=== PATIENT | male | born 1980 | race Caucasian/White ===

== ENCOUNTER → 2017-06-25 07:52 | Outpatient (CLI) | payer OTHER | END | disposition home or self-care (01) | LOC: D.US 07:52 | DX: C92.10 Chronic myeloid leukemia, BCR/ABL-positive, not having achieved remission (principal) ==

== ENCOUNTER 2019-09-07 09:35 | Emergency (ER) | payer MEDICARE ==
[~2019-09-07] VITALS: Ht 188 cm; Wt 115.9 kg
[2019-09-07 09:46] VITALS: Ht 188 cm; Wt 115.9 kg
[2019-09-07] MEDS ORDERED: COREG 3.1253.125 MG PO (09:48)
[2019-09-07] MEDS ORDERED: TASIGNA200 MG PO (09:48)
[2019-09-07] MEDS ORDERED: PREDNISONE20 MG PO (09:49)
[2019-09-07] MEDS ORDERED: OXYCONTIN10 MG PO (09:49)
[2019-09-07 10:13] LABS: ANION GAP 15.2 mmol/L (8-16); CALCIUM 9.1 mg/dL (8.5-10.1); CARBON DIOXIDE 25.8 mmol/L (21.0-32.0); CREATININE - SERUM 1.3 mg/dL (0.6-1.3)
[2019-09-07 10:19] LABS: ALBUMIN 3.6 g/dL (3.4-5.0); BILIRUBIN - TOTAL 0.7 mg/dL (0.2-1.3); PROTEIN - SERUM 7.3 g/dL (6.4-8.2)
[2019-09-07 10:25] LABS: HEMATOCRIT 29.8 % (42.0-54.0); HEMOGLOBIN 9.9 g/dL (13.5-17.5); MCHC 33.2 g/dL (31.0-37.0); MCV 81.2 fL (80.0-100.0); MEAN PLATELET VOLUME 8.4 fL (7.4-10.4); PLATELET COUNT 85 10x3/uL (130-400); RBC 3.67 10x6/uL (4.20-6.10); WBC 24.6 10x3/uL (4.8-10.8)
[2019-09-07] MEDS ORDERED: FUROSEMIDE20 MG PO (11:06)
[2019-09-07 11:20] VITALS: BP 142/84
[2019-09-07 11:50] LABS: BASOPHILS 46 % (0-2); EOSINOPHILS 1 % (0-7); LYMPHOCYTES 46 % (15-50); NEUTROPHILS 6 % (40-80); PLATELET ESTIMATE DECREASED
== END 2019-09-07 11:20 | disposition home or self-care (01) ==
LOC: D.ER 09:35
PROVIDERS: Emergency Medicine
DX: R60.9 Edema, unspecified (principal); M79.642 Pain in left hand; M79.641 Pain in right hand; M79.672 Pain in left foot; M79.671 Pain in right foot